=== PATIENT | male | born 1990 | race American Indian/Alaskan Native ===

== ENCOUNTER 2018-09-17 06:07 | Day surgery (SDC) | payer BC ==
[2018-09-17 06:47] VITALS: BMI 36.4
[2018-09-17 07:01] VITALS: RESP 18
[2018-09-17] MEDS ORDERED: Bupivacaine 0.5% Inj(30mL) IJ ONE (07:04)
[2018-09-17] MEDS ORDERED: ceFAZolin 2 GM in Sodium Chloride 0.9% 100 ML IVPB ONE (07:04)
[2018-09-17] MEDS ORDERED: Lidocaine 1% Inj (20ml) IJ ONE (07:04)
--- NOTE | 2018-09-17 07:06 | CP.SDSHP ---
Same Day Surgery H & P - History Proposed Procedure: Right Foot Agus bunionectomy with Micah Pre-Op Diagnosis: Right Foot Hallux Abducto Vallgus - Previous Medical/Surgical History Pain: 4.Moderate Pain - Allergies Allergies: Allergies No Known Allergies Allergy (Verified 09/17/18 06:47) - Physical Exam Vital Signs: Vital Signs 09/17/18 06:59 Temperature 97.6 F Pulse Rate 65 Respiratory 18 Rate Blood Pressure 136/88 O2 Sat by Pulse 96 Oximetry Mental Status: Alert & Oriented x3 Neuro: WNL - {Optional Preform as Required} Integument: WNL - Impression Pt. Evaluated Today:Candidate for Anesthesia & Procedure: Yes - Date & Time Date: 09/17/18 Time: 07:06 Short Stay Discharge - Short Stay Discharge Admitting Diagnosis/Reason for Visit: M20 Disposition: HOME/ ROUTINE Additional Instructions (Diet, Activity): -Patient in good/stable condition for discharge home -Pt to resume medications per medical reconciliation -Resume regular diet -Please keep dressing clean, dry, & intact to surgical site -Use plastic bag over bandage for showering -Wear post op shoe at all times when ambulating -Call clinic if you see signs of infection (redness, swelling, malodor) -Please make an appointment to see Dr. Null in office/clinic within 1 week for post-op check Progress Note/Discharge Note with Instructions: - Patient evaluated bedside in recovery s/p left foot surgery - After surgical procedure patient in NAD - (+) Void, (+) Appetite - Capillary refill time <3s and NVS intact. - Patient denies complaints at this time. - Post operative instructions and plan of care explained to patient at length. - Patient. acknowledges verbal understanding. - Patient stable for DC per podiatric surgery
--- NOTE | 2018-09-17 07:06 | CP.PCM.PN ---
Subjective - Date & Time of Evaluation Date of Evaluation: 09/17/18 Time of Evaluation: 07:07 - Subjective Subjective: Podiatry SDS Note for Dr. Null, 27 y/o male patient was seen and evaluated in [facility] for right foot procedure. 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 Patient states his pain began about 6 months ago and he tried orthotics, however that did not alleviate his symptoms. Patient NPO status was confirmed. Patient denies any other surgeries in the past. Patient has [employer] with him at this time PMHx: denied PSHx: denied Allergies: none Objective - Vital Signs/Intake and Output Vital Signs (last 24 hours): Temp Pulse Resp BP Pulse Ox 97.6 F 65 18 136/88 96 09/17/18 06:59 09/17/18 06:59 09/17/18 06:59 09/17/18 06:59 09/17/18 06:59 - Medications Medications: Current Medications Bupivacaine HCl (Marcaine 0.5%) 20 ml IJ ONCE ONE Stop: 09/17/18 07:05 Cefazolin Sodium 2 gm/ Sodium (Chloride) 100 mls @ 100 mls/hr IVPB ONCE ONE; Protocol Stop: 09/17/18 08:03 Sodium Chloride (Sodium Chloride 0.9%) 1,000 mls @ 0 mls/hr IV .Q0M CHRISTOPHER Stop: 09/18/18 07:04 Lidocaine HCl (Lidocaine 1% (20ml)) 20 ml IJ ONCE ONE Stop: 09/17/18 07:05 - Constitutional Appears: Well, Non-toxic, No Acute Distress - Head Exam Head Exam: ATRAUMATIC, NORMOCEPHALIC - Extremities Exam Additional comments: VASC: DP and PT 2/4 bilaterally, CFT less than 3 seconds X 10, no edema, no erythema DERM: minimal erythema noted to the dorso-medial eminence, no open lesions, no signs of infection, no IDM ORTHO: minimal pain on palpation to the dorso-medial eminence to the right 1st MPJ, hallux abducto valgus noted of the right, minimal pain with 1st MPJ range of motion, no crepitus noted, MSK 5/5 NEURO: epicritic and protective sensations intact - Neurological Exam Neurological Exam: Alert, Awake, Oriented x3 - Psychiatric Exam Psychiatric exam: Normal Affect, Normal Mood Assessment and Plan - Assessment and Plan (Free Text) Assessment: 27 y/o male patient seen and evaluated in [facility] for right foot surgery Plan: Pt was seen and examined in [facility] Pt NPO status was confirmed All pre-op testing and clearance in chart Pt has exhausted all conservative treatment at this time and is opting for surgical intervention Pt was explained procedure and post-operative course All pt's questions were answered to satisfaction No guarantees were made Pt understands all risks, benefits and complications of procedure Pt will follow-up with Dr. Null within 1 week of surgery
[2018-09-17] MEDS ORDERED: Midazolam 2 MG/2 ML VIAL ONE (07:15)
[2018-09-17] MEDS ORDERED: Propofol 10 mg/ml Inj (20 ML) ONE ×4 (07:15→09:11)
[2018-09-17] MEDS ORDERED: Sodium Chloride 0.9% 1,000 ML IV SCH (07:15)
[2018-09-17] MEDS ORDERED: Lactated Ringer's 1,000 ML IV ONE ×2 (07:46→10:30)
[2018-09-17] MEDS ORDERED: Bupivacaine 0.5% Inj(30mL) ONE (07:54)
[2018-09-17] MEDS ORDERED: Lidocaine 1% Inj (20ml) ONE (07:54)
[2018-09-17] MEDS ORDERED: Bupivacaine 0.5% 50 ML IJ ONE (10:00)
--- NOTE | 2018-09-17 10:33 | PCM.SURG1 ---
Surgeon's Initial Post Op Note - Surgeon's Notes Surgeon: Tennille Cooker Pie Filling: nahomy Type of Anesthesia: General LMA, Local Anesthesia Administered By: chey Pre-Operative Diagnosis: right foot hallux valgus deformity. right foot 2nd digit hammertoe deformity Operative Findings: see dictation. 2.4 arthrex screw, staple. k wire. 2-0,3-0.4-0 vicryl, 4-0 nylon Post-Operative Diagnosis: same Operation Performed: right foot bunionectomy. 2nd digit tenotomy and capsulotomy MPJ. 2nd digit pipj arthroplasty Specimen/Specimens Removed: bone Estimated Blood Loss: EBL {In ML}: 5 Blood Products Given: N/A Drains Used: No Drains Post-Op Condition: Good Date of Surgery/Procedure: 09/17/18 Time of Surgery/Procedure: 10:33
[2018-09-17] MEDS ORDERED: Oxycodone/Acetaminophen 5/325 mg Tab PO PRN ×2 (10:34)
[2018-09-17] MEDS ORDERED: HYDROmorphone 0.5 mg/0.5 ml ISec IVP PRN (10:37)
[2018-09-17] MEDS ORDERED: Lactated Ringer's 1,000 ML IV SCH (10:45)
[2018-09-17 13:46] VITALS: BP 129/81; PULSE 79; TEMP 98; O2SAT 97
--- NOTE | 2018-09-20 20:57 | OP ---
PROCEDURE DATE: 09/17/2018 SURGEON: Obed Null DPM ALUMINUM SHINGLE ROOFER: Chika Maradiaga DPM, PGY-3 INSTANT PRINT OPERATOR: Mirian Cassidy MD ANESTHESIA: General. PREOPERATIVE DIAGNOSES: 1. Right foot hallux valgus deformity. 2. Right foot second digit hammer toe deformity. POSTOPERATIVE DIAGNOSES: 1. Right foot hallux valgus deformity. 2. Right foot second digit hammer toe deformity. PROCEDURES PERFORMED: 1. Bunionectomy with screw fixation. 2. Right foot proximal phalanx osteotomy with internal fixation. 3. Right foot second metatarsal phalangeal joint tenotomy and capsulotomy. 4. Right foot second digit proximal interphalangeal joint arthroplasty with K-wire fixation. INDICATION: The patient is a 27-year-old male with the above-mentioned diagnoses. The patient has exhausted multiple forms of conservative treatment at this time and now seek surgical intervention. The patient signed the consent after careful explanation of risks, benefits, complications and alternatives for surgical procedure. No guarantees were given nor implied. The patient was brought into the operating room and placed on the operating room table in a supine position. A time-out was performed for identification of the correct patient and procedure. The patient received a total of 20 mL of 2% lidocaine plain in a local block type fashion to the right foot. Once the local anesthesia was achieved, the right foot was then prepped and draped in normal sterile manner and the pneumatic ankle tourniquet was inflated to 250 mmHg and the procedure began. PROCEDURE #1: Attention was directed to the dorsal aspect of first metatarsal head of the right foot where an approximately 6 cm linear longitudinal incision was made medial and parallel to the tendon of the extensor hallucis longus involving the contour of the deformity. The incision was deepened through subcutaneous tissue with care being taken to identify and retract all vital neurovascular structures. All bleeders were cauterized and ligated as necessary. Attention was then directed to the first interspace via the original incision where the conjoint tendon of the abductor versus muscle was identified and transected at its attachment to the base of the proximal phalanx of the hallux. sesamoid ligament was released. At this time, a lateral contracture present on the hallux was noted to be reduced. Next, an inverted L-type capsulotomy was performed over the dorsal aspect of the first metatarsophalangeal joint. The periosteal and capsular structures were then carefully dissected free of the osseous attachments and reflected medially and laterally thus exposing the head of the first metatarsal into the operating field. Next, utilizing a sizer and a bone saw, the dorsomedial eminences were resected and passed off the operative field. All rough edges were then smoothed down with a rasp. Attention was then redirected to the medial aspect of the first metatarsal head where a [id number] V-type osteotomy was created in the metaphyseal region of the bone utilizing a sagittal saw. The apex of the osteotomy pointed distally with the arm pointing proximal plantar and proximal dorsal. Upon completion of the osteotomy, the capital fragment was then distracted and shifted laterally into a more corrected position and impacted on the first metatarsal shaft. At this time, a 0.045 inch K-wire was driven from dorsal to plantar across the osteotomy site to serve as temporary fixation. Following sequential removal of the K-wires and following sequential standard AO principles and techniques, a 2.4 x 18 mm Arthrex cortical screw was inserted and placed across the osteotomy site with excellent compression noted. Attention was then directed to the remaining medial bone chop, which was resected utilizing a sagittal saw and passed off the operative field. Correction of the deformity was assessed at this time and noted to be excellent. The incision site was then copiously irrigated with sterile normal saline. PROCURE #2: Proximal phalanx osteotomy of the right hallux with staple fixation. The area of the original incision, the periosteal and capsular structures were reflected medially and laterally closing the base of the proximal phalanx to the operative field. Next, utilizing a sagittal bone saw, dorsal to plantar proximal osteotomy was created in the proximal phalanx of the left hallux and a wedge of bone was resected and passed from the operative field. Following standard AO principals and technique, an Arthrex staple was inserted and placed across the osteotomy site with excellent compression noted. The surgical site was then flushed with copious amounts of normal sterile saline. The periosteal and capsular structures were then reapproximated with 2-0 and 3-0 Vicryls. The subcutaneous tissue was reapproximated with 4-0 Vicryl and the skin was reapproximated with 4-0 nylon. PROCURE #3: Attention was then directed to the dorsal aspect of the second digit of the right foot where approximately a 4 cm linear incision was made overlying the proximal interphalangeal joint extending proximally to the second metatarsophalangeal joint. The incision was deepened through subcutaneous tissue with care being taken to identify and retract all vital neurovascular structures. All bleeders were cauterized and ligated as necessary. At this time, a transverse tenotomy and capsulotomy was performed to the proximal interphalangeal joint. The proximal phalanx was then freed of its capsular and ligamentous attachments and working proximally using a #15 blade, a tenotomy of the extensor tendon and a capsulotomy of the second metatarsophalangeal joint was performed. The release of the collateral ligament was performed and excellent correction was noted at the metatarsophalangeal joint. PROCEDURE #4: The original incision along the second digit. Next, utilizing a sagittal saw, the head of the proximal phalanx was resected and passed from the operative field. The surgical site was then irrigated with sterile normal sterile. Using a K-wire driver examiner, a 4-5 inch K-wire was inserted through the second digit and retrograded back into the proximal phalanx. Correction of the deformity was noted at this time and noted to be excellent. The subcutaneous tissue was reapproximated with 4-0 Vicryl and the skin was reapproximated with 4-0 nylon. Postoperative injection of 10 mL of 0.5% Marcaine plain was given in a local block type fashion to the right foot. Postoperative dressing included Xeroform, 4 x 4s, gauze, Olya and Derick bandage. POSTOPERATIVE CONDITION: The patient tolerated the anesthesia and the procedure well and was escorted to the recovery room with vital signs stable and neurovascular status intact to the right lower extremity. The patient will follow up with Dr. Null in his office on an outpatient basis. Chika Maradiaga DPM Obed Null DPM [facility] # [id number]
== END 2018-09-17 15:15 | disposition home or self-care (01) ==
LOC: H.OPSURG 06:07
PROVIDERS: ATTEND Podiatrist Foot & Ankle Surgery
DX: M20.11 Hallux valgus (acquired), right foot (principal); E55.9 Vitamin D deficiency, unspecified; G47.33 Obstructive sleep apnea (adult) (pediatric); M20.41 Other hammer toe(s) (acquired), right foot
CPT/HCPCS: 28270; 28285; 28296; 97161; G8978; G8979; G8980; J0690; J2001; J2250; J2704; J3010; J7120